=== PATIENT | female | born 1995 | race Caucasian/White ===

== ENCOUNTER 2019-06-24 00:59 | Emergency (ER) | payer OTHER, SELFPAY ==
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
[2019-06-24 01:05] VITALS: BP 112/58; PULSE 70; RESP 18; TEMP 36.6; O2SAT 100; BMI 25.0
[2019-06-24] MEDS: ONDANSETRON 4 MG ODT PO (01:33)
[2019-06-24] MEDS: ONDANSETRON 4 MG ODT PREPACK 1 BOTTLE MISC (01:36)
[2019-06-24] MEDS: IBUPROFEN 400 MG TABLET 800 MG PO (01:54)
[2019-06-24 02:18] VITALS: BP 108/72; PULSE 70; RESP 16; O2SAT 98
== END 2019-06-24 02:20 | disposition home or self-care (01) ==
PROVIDERS: Emergency Provider Emergency Medicine
DX: S06.0X0A Concussion without loss of consciousness, initial encounter (principal); R51 Headache; V18.4XXA Pedal cycle driver injured in noncollision transport accident in traffic accident, initial encounter; Y93.55 Activity, bike riding
CPT/HCPCS: 99283